=== PATIENT | female | born 1990 | race Caucasian/White ===

== ENCOUNTER → 2018-08-04 | Outpatient (CLI) | payer OTHER ==
--- NOTE | 2018-08-04 17:47 | Diagnostic Imaging Report ---
INDICATION: Undergoing anatomical assessment. TECHNIQUE: Multiple real-time grayscale images were obtained over the gravid uterus. COMPARISON: None. FINDINGS: Single viable intrauterine , currently in transverse orientation. Normal amount of amniotic fluid. The placenta is anterior in position and low lying. There is presence of at least a marginal placenta previa at this time. There does appear to be presence of a choroid plexus cyst at the right ventricle at 8 mm in size. There does appear to be mild dilatation of the renal pelves. Maternal adnexa not imaged. Cervical length appearing to be greater than 6 cm. Biometrical measurements are as follows: Biparietal 4.96 cm, age 21 weeks 1 days. Head circumference 18.50 cm, age 20 weeks 6 days. Abdominal circumference 17.73 cm, age 22 weeks 5 days. Femur length 3.20 cm, age 20 weeks 0 days. Sonographic estimate age: 21 weeks 2 days. Sonographic estimated date of delivery: 12/13/18. Estimated Weight: 418 gm (+/- 61 gm). LMP percentile: 90%. heart rate: 155 beats per minute. number: 1 of 1. IMPRESSION: 1. Single viable intrauterine , currently in transverse orientation. Sonographic estimated age 21 weeks 2 days for an estimated date of delivery December 13, 2018. 2. There is presence of asymmetric nearly 8 mm right-sided choroid plexus cyst of the lateral ventricle. 3. There is presence of at least marginal placenta previa. Followup imaging evaluation recommended. 4. There is mild dilatation of the renal pelves. Dictated by: Dictated on workstation # [id number]
== END ==
LOC: RAD 12:41
PROVIDERS: ATTEND Obstetrics & Gynecology
DX: O44.22 Partial placenta previa NOS or without hemorrhage, second trimester (principal); O36.8920 Maternal care for other specified fetal problems, second trimester, not applicable or unspecified; Z3A.21 21 weeks gestation of pregnancy
CPT/HCPCS: 76805

== ENCOUNTER 2018-12-20 20:16 | Inpatient (IN) | payer OTHER ==
[~2018-12-20] VITALS: Ht 157.5 cm; Wt 66.3 kg
--- NOTE | 2018-12-20 20:20 | NUR ---
CHUY BENEDICT presented to unit via ambulation from ED, accompanied by SO , with c/o LABOR. CHUY BENEDICT weighed, gowned, voided, and to bed. EFHM and TOCO applied, VS taken. CHUY BENEDICT oriented to bed controls, call light, TV, heat, and A/C controls.
[2018-12-20] MEDS ORDERED: FERR500P12 MC (20:32)
[2018-12-20] MEDS ORDERED: PREN1TAB79 PO (20:32)
--- NOTE | 2018-12-20 20:32 | NUR ---
Dr Wilder called and report given, pt to change to inpt status.
[2018-12-20] MEDS ORDERED: D5 LR IV SOLUTION 1,000 ML IV ONE (20:39)
[2018-12-20] MEDS ORDERED: LIDOCAINE/EPI 2% 1:200,00 (XYLOCAINE) 10 ML VIAL INJ ONE (20:45)
[2018-12-20 21:00] VITALS: BP 119/75
[2018-12-20] MEDS: D5 LR IV SOLUTION 1,000 ML IV SCH ×2 (21:00→23:19)
[2018-12-20 21:10] LABS: BASOPHILS % (AUTO) 0 % (0-10); EOSINOPHILS # (AUTO) 0.3 10^3/uL (0.0-0.3); EOSINOPHILS % (AUTO) 3 % (0-10); HEMATOCRIT 36 % (35-52); HEMOGLOBIN 12.5 G/DL (11.5-16.0); LYMPHOCYTES # (AUTO) 1.9 X 10^3 (1.0-4.0); LYMPHOCYTES % (AUTO) 16 % (12-44); MEAN CORPUSCULAR HEMOGLOBIN 33 PG (25-34); MEAN CORPUSCULAR HGB CONC 35 G/DL (32-36); MEAN CORPUSCULAR VOLUME 96 FL (80-99); MONOCYTES # (AUTO) 0.8 X 10^3 (0.0-1.0); MONOCYTES % (AUTO) 6 % (0-12); NEUTROPHILS # (AUTO) 8.8 X 10^3 (1.8-7.8); NEUTROPHILS % (AUTO) 74 % (42-75); PLATELET COUNT 149 10^3/uL (130-400); RED CELL DISTRIBUTION WIDTH 13.7 % (10.0-14.5); WHITE BLOOD COUNT 11.8 10^3/uL (4.3-11.0)
--- NOTE | 2018-12-20 21:34 | History & Physical-OB ---
OB - Chief Complaint & HPI Date/Time Date of Admission: Date of Admission: Dec 20, 2018 at 20:32 Date seen by a Provider: Dec 20, 2018 Time Seen by a Provider: 08:00 Chief Complaint/History OB-Reason for Admission/Chief: Onset of Labor Hx : 1 Hx Para: 0 Expected Date of Delivery: Dec 19, 2018 Gestational Age in Weeks: 40 Gestational Age in Days: 1 Admission Nurse Assessment Rev: Yes History of Labs A pos Antibody neg RI RPR NR HBsAg NR HIV NR GC neg GBS neg Allergies and Home Medications Allergies Coded Allergies: No Known Drug Allergies (Unverified , 12/20/18) Patient Home Medication List Home Medication List Reviewed: Yes OB - History Hx of Present Care: Yes Ultrasounds: Normal mid trimester US Obstetrical Complications: None Medical Complications: None Patient Past Medical History na OB - Admission Exam Physical Exam HEENT: NCAT Heart: Rhythm Normal Lungs: Clear Abdomen: Gravid Extremities: Normal Reflexes: Normal Cervical Dilatation: 4cm Effacement: 75% Station: -1 Membranes: Ruptured Amniotic Fluid: Clear Heart Rate: 130's Accelerations: Accelerations Present Decelerations: No Decelerations Short Term Variability: Present Senior Living Variability: Average (6-25) Contractions on Admission: 6-10 Minutes Apart Intensity: Mild Labs Laboratory Tests Test 12/20/18 21:00 Range/Units White Blood Count 11.8 H 4.3-11.0 10^3/uL Red Blood Count 3.74 L 4.35-5.85 10^6/uL Hemoglobin 12.5 11.5-16.0 G/DL Hematocrit 36 35-52 % Mean Corpuscular Volume 96 80-99 FL Mean Corpuscular Hemoglobin 33 25-34 PG Mean Corpuscular Hemoglobin Concent 35 32-36 G/DL Red Cell Distribution Width 13.7 10.0-14.5 % Platelet Count 149 130-400 10^3/uL Mean Platelet Volume 12.0 H 7.4-10.4 FL Neutrophils (%) (Auto) 74 42-75 % Lymphocytes (%) (Auto) 16 12-44 % Monocytes (%) (Auto) 6 0-12 % Eosinophils (%) (Auto) 3 0-10 % Basophils (%) (Auto) 0 0-10 % Neutrophils # (Auto) 8.8 H 1.8-7.8 X 10^3 Lymphocytes # (Auto) 1.9 1.0-4.0 X 10^3 Monocytes # (Auto) 0.8 0.0-1.0 X 10^3 Eosinophils # (Auto) 0.3 0.0-0.3 10^3/uL Basophils # (Auto) 0.0 0.0-0.1 10^3/uL OB - Assessment/Plan/Diagnosis Assessment Assessment: active labor Admission Dx 28 yo @ 40.1 SROM Active labor GBS neg Post dates Admission Status: Inpatient Order (span 2 midnights) Reason for Inpatient Admission: Active labor at term Plan Plan: Expectant Management RAFFAELE PERERA DO Dec 20, 2018 21:34
[2018-12-20 22:00] VITALS: BP 124/70
[2018-12-20] MEDS ORDERED: CATHETER FLUSH 10 ML SYR IV SCH (22:00)
[2018-12-20] MEDS ORDERED: TERBUTALINE INJ 1 MG/ML (BRETHINE) AMP ONE (22:32)
[2018-12-20 23:00] VITALS: BP 124/66
[2018-12-20] MEDS ORDERED: OXYTOCIN/NORMAL SALINE 500 ML IV SCH (23:58)
[2018-12-21] VITALS (91 sets, daily range): BP systolic 90–148; BP diastolic 50–86
[2018-12-21] MEDS ORDERED: SUFENTA 0.6MCG/ML BUPIVA 0.125 100 ML ONE (03:40)
[2018-12-21] MEDS: EPIDURAL (SUFENTA 0.6MCG/ML BUPIVA 0.125%) 100 ML BAG EPI SCH ×2 (04:46→13:11)
[2018-12-21] MEDS ORDERED: LACTATED RINGERS 1,000 ML IV SCH (04:56)
[2018-12-21] MEDS ORDERED: diphenhydrAMINE 50 MG/ML INJ (BENADRYL) IV PRN (05:00)
[2018-12-21] MEDS ORDERED: ONDANSETRON 4 MG/2 ML (SDV) Z0FRAN IV PRN (05:00)
[2018-12-21] MEDS ORDERED: NALOXONE 0.4 MG/ML 1 ML (NARCAN) VIAL IV PRN ×3 (05:00→06:15)
[2018-12-21] MEDS ORDERED: METOCLOPRAMIDE INJ 10 MG/2 ML (REGLAN) IV PRN (05:00)
[2018-12-21] MEDS ORDERED: LACTATED RINGERS 1,000 ML IV ONE (06:12)
[2018-12-21] MEDS ORDERED: EPIDURAL (SUFENTA 0.6MCG/ML BUPIVA 0.125%) 100 ML BAG EPI SCH (06:15)
[2018-12-21] MEDS ORDERED: CATHETER FLUSH 10 ML SYR IV PRN ×2 (06:15→21:30)
--- NOTE | 2018-12-21 07:15 | NUR ---
THIS RN INTRODUCES SELF TO PT AND SO AT THIS TIME. PLAN OF CARE REVIEWED. QUESTIONS ANSWERED. PT DENIES NEEDS AT THIS TIME. CALL LIGHT WITHIN REACH.
[2018-12-21] MEDS: D5 LR IV SOLUTION 1,000 ML IV SCH ×3 (07:30→23:00)
--- NOTE | 2018-12-21 08:10 | NUR ---
DR PERERA ON LD UNIT AT THIS TIME. THIS RN UPDATES ON PT REPORT, REVIEWS FHT STRIP AND UC PATTERN. EPIDURAL PLACED AT APPROX 0445. PITOCIN RATE IS AT 12 MILLIUNITS/HR SINCE 729. LAST SVE WAS AT 0340 BY NORMA JI . CLEAR FLUID. NO FEVER. VSS. PT RESTING. DR DISCUSSES PLAN OF PT CARE WITH THIS RN. DR PERERA AND THIS RN GO TO BEDSIDE TO VISIT WITH PT AND SO. SVE BY DR PERERA. NO CERVICAL CHANGE HAS BEEN MADE. DR PERERA ORDERS TO TURN OFF PITOCIN RATE AT THIS TIME. RESTART AT 14 MILLIUNITS/HR IN 45 MIN TO LET PITOCIN RECEPTORS RESET. THEN WILL CONTINUE TO INCREASE PITOCIN RATE PER PROTOCOL. DR PERERA DOES NOT WANT SVE TODAY UNLESS S/S DEEM NECESSARY.
--- NOTE | 2018-12-21 10:22 | Anesthesia-Regional Post-Op ---
Regional Patient Condition Mental Status: Alert, Oriented x3 Circulation: Same as Pre-Op Headache: Absent Sensation: Full Recovery Motor Block: Absent Post Op Complications Complications None Follow Up Care/Instructions Patient Instructions None needed. Anesthesia/Patient Condition Patient is doing well, no complaints, stable vital signs, no apparent adverse anesthesia problems. No complications reported per nursing. OLIVE KOROMA CRNA Dec 21, 2018 10:22
--- NOTE | 2018-12-21 15:30 | NUR ---
THIS RN CALLS DR WITH UPDATED PT REPORT. PITOCIN RATE AT 20 MILLIUNITS/HR. UC PATTERN IRREGULAR. WILL HAVE 4-5 UC IN A ROW 1.5 MIN APART THEN SPACE OUT WITH NO UC FOR 5-7 MINUTES. FHT REACTIVE, MODERATE VARIABILITY WITH ACCELS. DR PERERA WANTS TO TURN PITOCIN OFF FOR 1 HOUR THEN RESTART AT 10 MILLIUNITS/HR. DR PERERA STATES EH SHOULD BE DONE WITH CLINIC AND UP TO SEE PT BY THAT TIME.
--- NOTE | 2018-12-21 20:05 | NUR ---
Dr. Wilder updated on pt status. orders pt to be rechecked at 2030, and give him a call with the update. If pt. has still made no change, states he will call a section.
--- NOTE | 2018-12-21 20:42 | NUR ---
Dr. Wilder called with updated SVE and temp. States that he will be up shortly to talk to pt about a section. OR crew given heads up.
[2018-12-21] MEDS ORDERED: CITRIC ACID/SOB CIT (BICITRA) 30 ML UDC ONE (20:49)
[2018-12-21] MEDS ORDERED: FAMOTIDINE 20MG/2ML IV (PEPCID) ONE (20:50)
[2018-12-21] MEDS ORDERED: ceFAZolin INJECTION 1,000 MG ONE (20:50)
[2018-12-21] MEDS ORDERED: WATER (STERILE) FOR INJECTION 10 ML ONE (20:58)
[2018-12-21] MEDS ORDERED: WATER (STERILE) FOR INJECTION 0 ML ONE (20:58)
--- NOTE | 2018-12-21 21:00 | NUR ---
Dr. Wilder at pt bedside explaining procedure. Pt. agrees to .
[2018-12-21] MEDS ORDERED: OXYTOCIN/NORMAL SALINE 500 ML IV SCH (21:21)
[2018-12-21] MEDS ORDERED: LIDOCAINE PF 2% 5 ML (XYLOCAINE) VIAL ONE (21:23)
[2018-12-21] MEDS ORDERED: BUPIVACAINE 0.5% 30 ML (SENSORCAINE) VIAL ONE ×2 (21:24)
[2018-12-21] MEDS ORDERED: fentaNYL INJECTION 100 MCG/2 ML AMP ONE ×2 (21:24→22:03)
--- NOTE | 2018-12-21 21:28 | Discharge Inst-Women's Service ---
Discharge Inst-Women's Serv Depart Medication/Instructions New, Converted or Re-Newed RX: RX on Chart Final Diagnosis POD 2 PLTCS Consults/Follow Up Additional Follow Up: Yes Orders/Referrals Dr. Wilder in 7-10 days and in 6 weeks Activity Activity: Activity as Tolerated Driving Instructions: No Driving for 1 Week NO SMOKING: NO SMOKING Nothing Inside Vagina: No Douching, No [place], No Tampons Diet Discharge Diet: No Restrictions Symptoms to Report to : Bleeding Excessive, Pain Increased, Fever Over 101 Degrees F, Vaginal Bleeding Increase, Questions/Concerns For Any Problems or Questions: Contact Your Physician Skin/Wound Care Infection Signs and Symptoms: Increased Redness, Foul Odor of Wound, Increased Drainage, Skin Itchy or Has a Rash, Increased Swelling, Temperature Above 101 F Operative Area Clean and Dry: Keep Incision Clean/Dry Stitches/[place]/Dermabond: Dermabond, Care of Stitches Bathing Instructions: RAFFAELE So DO Dec 21, 2018 9:28 pm
[2018-12-21] MEDS ORDERED: TETANUS,DIPTH,PERTUSS P/F (BOOSTRIX) 0.5 ML VIAL IM SCH (21:30)
[2018-12-21] MEDS ORDERED: METOCLOPRAMIDE INJ 10 MG/2 ML (REGLAN) IV ONE (21:30)
[2018-12-21] MEDS ORDERED: FAMOTIDINE 20MG/2ML IV (PEPCID) IV ONE (21:30)
[2018-12-21] MEDS ORDERED: IBUP-844 PO (21:30)
[2018-12-21] MEDS ORDERED: ACHD5005 PO (21:30)
[2018-12-21] MEDS ORDERED: MEASLES,MUMPS,RUBELLA 1 EA INJ SC SCH (21:30)
[2018-12-21] MEDS ORDERED: DOCU100C37 PO (21:30)
[2018-12-21] MEDS ORDERED: ONDANSETRON 4 MG/2 ML (SDV) Z0FRAN IVP PRN ×2 (21:30→22:45)
[2018-12-21] MEDS ORDERED: CITRIC ACID/SOB CIT (BICITRA) 30 ML UDC PO ONE (21:30)
--- NOTE | 2018-12-21 21:34 | Progress Note-Standard ---
Standard Progress Note Progress Notes/Assess & Plan Date Seen by a Provider: Dec 21, 2018 Time Seen by a Provider: 21:00 Progress/Assessment & Plan Patient was admitted yesterday with SROM at 1800 40 weeks gestation. Pitocin augmentation was used throughout the night and the day today, and epidural was received for analgesia with good control. Max dose of pitocin was 20 mu/min, and still a dysfunctional contraction pattern was noted, multiple attempts were made to stop and restart at half dosing without any decent in the vertex nor, progression in cervical change, she presented 4 cm and 60-70 percent effaced and made no ticket dispenser changer >24 hrs. I discussed with the patient my concern with continuing with no change and risk of chorioamnionitis, especially now with prolonged rupture. I discussed proceed with , risk reviewed in detail as well as risk with anesthesia. All questions were answered and consent was obtained. Patient then taken to the OR for prep to proceed with delivery. RAFFAELE PERERA DO Dec 21, 2018 9:34 pm
[2018-12-21] MEDS ORDERED: ceFAZolin INJECTION 1,000 MG in WATER (STERILE) FOR INJECTION 10 ML IV ONE (21:45)
[2018-12-21] MEDS ORDERED: METHYLERGONOVINE 0.2 MG/ML (METHERGINE) AMP IM ONE (21:52)
[2018-12-21] MEDS ORDERED: CATHETER FLUSH 10 ML SYR IV SCH (22:00)
[2018-12-21] MEDS ORDERED: MIDAZOLAM 2 MG/2 ML (VERSED) VIAL ONE (22:04)
[2018-12-21] MEDS ORDERED: proPOfol 200 MG/20 ML (DIPRIVAN) VIAL IV ONE (22:20)
[2018-12-21] MEDS: KETOROLAC 30 MG/ML VIAL IV SCH (23:05)
[2018-12-22] VITALS (7 sets, daily range): BP systolic 97–127; BP diastolic 49–68
[2018-12-22] MEDS: HYDROcodone/APAP 5 MG/325 MG (LORTAB) TAB PO PRN ×6 (00:15→22:13)
--- NOTE | 2018-12-22 03:00 | NUR ---
Nurse at pt bedside. Pt. sleeping soundly at this time. IV saline locked at this time.
--- NOTE | 2018-12-22 03:16 | OPERATIVE REPORT ---
DATE OF SERVICE: PREOPERATIVE DIAGNOSES: 1. A 28-year-old G1, P0 at 40 weeks and 2 days gestation. 2. Cephalopelvic disproportion. 3. Postdates. 4. Prolonged rupture of membranes. POSTOPERATIVE DIAGNOSES: 1. A 28-year-old G1, P0 at 40 weeks and 2 days gestation. 2. Cephalopelvic disproportion. 3. Postdates. 4. Prolonged rupture of membranes. PROCEDURE: Primary low transverse section. SURGEON: Randall Wilder DO ANESTHESIA: Epidural, which was bolused. ESTIMATED BLOOD LOSS: 550 mL. URINE OUTPUT: 100 mL clear at the end of the procedure. FLUIDS: 700 mL lactated Ringer's solution. FINDINGS: A live male infant weighing 9 pounds 2 ounces, Apgars of 8 and 9. Grossly normal appearing uterus, bilateral fallopian tubes and ovaries. INDICATIONS FOR PROCEDURE: Please see my preoperative note for complete details pertaining to the patient's preoperative course in labor progression. OPERATIVE REPORT IN DETAIL: Once in the operating room, epidural analgesia was bolused and found to be adequate. She was placed in supine position with leftward tilt, prepped and draped in normal sterile fashion. Anesthesia was tested and a timeout was performed. After anesthesia was found to be adequate, I then proceeded to make a Pfannenstiel skin incision with a knife and carried down to the underlying fascia using Bovie cautery. Fascial incision extended laterally using Bovie cautery. Superior aspect of the fascial incision was then grasped with Cleopatra clamps, tented upward and dissected off the underlying rectus muscles. The inferior aspect of the fascial incision was then grasped with Cleopatra clamps, tented up and dissected off the underlying rectus muscles. Rectus muscles were then dissected down the midline using Shelton scissors, which exposed the peritoneum, which I entered bluntly and extended using blunt traction. Ty ring retractor was placed in the peritoneal incision, which offered excellent lateral sidewall retraction. I then proceeded with making a low transverse incision to the vesicouterine peritoneum and bluntly dissected off the lower uterine segment. I proceeded with myotomy until membranes were visualized, at which point I extended the uterine incision laterally and superiorly using bandage scissors. The infant was found in vertex presentation transverse right. With gentle fundal pressure, the infant's head is elevated up to the incision and delivered through the incision. The nares and the oropharynx were then bulb suctioned. The anterior and posterior shoulders were delivered and the infant was then brought on to the operative field where the cord was doubly clamped and the infant was handed off to the awaiting nurse in attendance. Cord blood was collected. A 3-vessel cord with intact placenta was delivered spontaneously thereafter. IV Pitocin was initiated to facilitate uterine contraction. Uterine fundus was confirmed by bimanual massage. The uterus was then exteriorized and cleared of all endometrial clots and debris. I then proceeded with closing the uterine incision using 0 Vicryl suture in a running locked fashion. A second layer of imbricating 0 Monocryl was placed. Excellent hemostasis was noted after doing this. I then evaluated the uterus itself. It appeared to be slightly boggy, so I do have anesthesia give 0.2 mg of Methergine IM and the bogginess then resolved and there is good uterine firmness. I then placed the uterus back within the pelvis and copiously irrigated the pelvis using normal saline. There was no active bleeding noted from any of my dissection planes. I placed Interceed antiadhesive over my low transverse incision and proceeded with closing my peritoneum using 3-0 Vicryl suture in a running fashion. The rectus muscle reapproximated using 3-0 Vicryl suture in interrupted fashion. The fascia was reapproximated using 0 Vicryl suture in running fashion. Subcutaneous tissue was reapproximated using 3-0 plain in interrupted fashion and the skin reapproximated using 4-0 Monocryl in a running subcuticular. Dermabond was applied to the incision and a sterile dressing with adhesive white tape. The patient tolerated the procedure well and sent to recovery area in stable condition. Lap and sponge counts were correct at the end of the procedure. Instrument count was correct as well. One gram of Ancef given preoperatively for infection prophylaxis. Job ID: [id number] DocumentID: [id number] Dictated Date: 12/21/2018 22:36:59 [employer] Sales Representative Date: 12/22/2018 03:15:18 Dictated By: DO NUPUR GRACIA
[2018-12-22] MEDS: KETOROLAC 30 MG/ML VIAL IV SCH (05:15)
[2018-12-22 06:41] LABS: BASOPHILS % (AUTO) 0 % (0-10); EOSINOPHILS # (AUTO) 0.1 10^3/uL (0.0-0.3); EOSINOPHILS % (AUTO) 1 % (0-10); HEMATOCRIT 33 % (35-52); HEMOGLOBIN 11.3 G/DL (11.5-16.0); LYMPHOCYTES # (AUTO) 1.2 X 10^3 (1.0-4.0); LYMPHOCYTES % (AUTO) 8 % (12-44); MEAN CORPUSCULAR HEMOGLOBIN 33 PG (25-34); MEAN CORPUSCULAR HGB CONC 34 G/DL (32-36); MEAN CORPUSCULAR VOLUME 97 FL (80-99); MEAN PLATELET VOLUME 11.4 FL (7.4-10.4); MONOCYTES # (AUTO) 0.7 X 10^3 (0.0-1.0); MONOCYTES % (AUTO) 5 % (0-12); NEUTROPHILS # (AUTO) 11.9 X 10^3 (1.8-7.8); NEUTROPHILS % (AUTO) 86 % (42-75); PLATELET COUNT 111 10^3/uL (130-400); RED CELL DISTRIBUTION WIDTH 13.6 % (10.0-14.5); WHITE BLOOD COUNT 13.8 10^3/uL (4.3-11.0)
--- NOTE | 2018-12-22 08:18 | Postpartum Progress Note ---
Note Note Day # 1 Subjective: Patient is without complaints. Ambulating, voiding. Tolerating a regular diet without nausea or vomiting. Normal lochia. Pain is well controlled with oral pain medications. Objective: Vital Sign - Last 24 Hours 12/21/18 12/21/18 12/21/18 12/21/18 08:30 08:45 09:00 09:15 Temp 98.2 Pulse 62 61 66 68 Resp 16 B/P (MAP) 110/67 (81) 114/73 (87) 112/69 (83) 99/58 (72) O2 Delivery Room Air Room Air Room Air Room Air 12/21/18 12/21/18 12/21/18 12/21/18 09:30 09:45 10:00 10:15 Pulse 68 60 58 57 Resp 16 B/P (MAP) 111/67 (82) 103/59 (74) 107/66 (80) 103/62 (76) O2 Delivery Room Air Room Air Room Air Room Air 12/21/18 12/21/18 12/21/18 12/21/18 10:30 10:45 11:00 11:15 Temp 98.6 Pulse 66 69 60 65 Resp 16 B/P (MAP) 124/66 (85) 115/67 (83) 114/69 (84) 108/67 (81) O2 Delivery Room Air Room Air Room Air Room Air 12/21/18 12/21/18 12/21/18 12/21/18 11:30 11:45 12:00 12:15 Temp 99.0 Pulse 60 59 58 66 Resp 16 B/P (MAP) 111/68 (82) 113/69 (84) 113/70 (84) 105/68 (80) O2 Delivery Room Air Room Air Room Air Room Air 12/21/18 12/21/18 12/21/18 12/21/18 12:30 12:45 13:00 13:15 Pulse 73 62 59 61 B/P (MAP) 122/74 (90) 119/67 (84) 125/67 (86) 113/57 (75) O2 Delivery Room Air Room Air Room Air Room Air 12/21/18 12/21/18 12/21/18 12/21/18 13:30 13:45 14:00 14:15 Temp 98.7 Pulse 64 69 71 Resp 16 B/P (MAP) 105/64 (78) 118/72 (87) 120/76 (91) 123/72 (89) O2 Delivery Room Air Room Air Room Air Room Air 12/21/18 12/21/18 12/21/18 12/21/18 14:30 14:45 15:00 15:15 Pulse 63 75 66 81 Resp 16 B/P (MAP) 129/73 (91) 132/77 (95) 125/68 (87) 118/72 (87) O2 Delivery Room Air Room Air Room Air Room Air 12/21/18 12/21/18 12/21/18 12/21/18 15:30 15:45 16:00 16:15 Temp 98.6 Pulse 63 69 73 66 Resp 16 B/P (MAP) 119/72 (88) 109/71 (84) 117/76 (90) 113/56 (75) O2 Delivery Room Air Room Air Room Air Room Air 12/21/18 12/21/18 12/21/18 12/21/18 16:30 16:45 17:00 17:15 Temp 99.1 Pulse 62 81 89 85 Resp 16 B/P (MAP) 114/72 (86) 99/66 (77) 148/65 (92) 129/57 (81) O2 Delivery Room Air Room Air Room Air Room Air 12/21/18 12/21/18 12/21/18 12/21/18 17:30 17:45 18:00 18:15 Pulse 82 64 73 68 Resp 16 B/P (MAP) 104/54 (71) 103/53 (70) 96/54 (68) 90/55 (67) O2 Delivery Room Air Room Air Room Air Room Air 12/21/18 12/21/18 12/21/18 12/21/18 18:30 18:45 19:00 19:15 Temp 99.1 99.5 Pulse 80 80 88 66 Resp 16 18 B/P (MAP) 113/63 (80) 113/63 (80) 106/58 (74) 111/65 (80) O2 Delivery Room Air Room Air Room Air Room Air 12/21/18 12/21/18 12/21/18 12/21/18 19:30 19:45 20:00 20:15 Temp 98.2 Pulse 69 71 60 78 Resp 18 B/P (MAP) 108/82 (91) 121/86 (98) 119/73 (88) 116/61 (79) O2 Delivery Room Air Room Air Room Air Room Air 12/21/18 12/21/18 12/21/18 12/21/18 20:30 20:45 21:00 21:15 Temp 98.5 Pulse 83 85 71 93 B/P (MAP) 122/80 (94) 123/69 (87) 131/77 (95) 130/79 (96) O2 Delivery Room Air Room Air Room Air Room Air 12/21/18 12/21/18 12/21/18 12/21/18 21:30 22:33 22:33 22:40 Pulse 68 Resp 19 20 B/P (MAP) 123/74 (90) Pulse Ox 97 97 O2 Delivery Room Air Room Air Room Air Room Air 12/21/18 12/21/18 12/21/18 12/21/18 22:45 22:50 23:00 23:00 Resp 18 20 Pulse Ox 98 99 O2 Delivery Room Air Room Air Room Air Room Air 12/21/18 12/21/18 12/21/18 12/21/18 23:10 23:13 23:15 23:20 Resp 18 18 Pulse Ox 97 98 O2 Delivery Room Air Room Air Room Air Room Air 12/21/18 12/21/18 12/21/18 12/22/18 23:25 23:25 23:30 00:15 Temp 99.0 98.9 Pulse 65 63 Resp 18 18 18 B/P (MAP) 136/66 (89) 127/65 (85) Pulse Ox 98 O2 Delivery Room Air Room Air Room Air Room Air 12/22/18 04:10 Temp 97.9 Pulse 68 Resp 18 B/P (MAP) 104/67 (79) Pulse Ox 97 O2 Delivery Room Air Intake and Output 12/21/18 12/21/18 12/22/18 15:00 23:00 07:00 Intake Total 1600 ml 1510 ml 1800 ml Output Total 900 ml 625 ml 950 ml Balance 700 ml 885 ml 850 ml Physical Exam: General - Alert and oriented, no apparent distress Abdomen - Soft, appropriately tender to palpation, non-distended, fundus firm at umbilicus Extremities - no edema, negative Jet's bilaterally Incision- c/d/i Assessment: POD 1 PLTCS Plan: Routine care. Encourage breast feeding. Encourage ambulation. Ferrous sulfate supplementation. Plan for discharge tomorrow Vitals - Labs Vital Signs - I&O Vital Signs Date Time Temp Pulse Resp B/P (MAP) Pulse Ox O2 Delivery O2 Flow Rate FiO2 12/22/18 04:10 97.9 68 18 104/67 (79) 97 Room Air 12/22/18 00:15 98.9 63 18 127/65 (85) Room Air 12/21/18 23:30 99.0 65 18 136/66 (89) Room Air 12/21/18 23:25 18 98 Room Air 12/21/18 23:25 Room Air 12/21/18 23:20 18 98 Room Air 12/21/18 23:15 Room Air 12/21/18 23:13 Room Air 12/21/18 23:10 18 97 Room Air 12/21/18 23:00 20 99 Room Air 12/21/18 23:00 Room Air 12/21/18 22:50 18 98 Room Air 12/21/18 22:45 Room Air 12/21/18 22:40 20 97 Room Air 12/21/18 22:33 Room Air 12/21/18 22:33 19 97 Room Air 12/21/18 21:30 68 123/74 (90) Room Air 12/21/18 21:15 93 130/79 (96) Room Air 12/21/18 21:00 71 131/77 (95) Room Air 12/21/18 20:45 85 123/69 (87) Room Air 12/21/18 20:30 98.5 83 122/80 (94) Room Air 12/21/18 20:15 78 116/61 (79) Room Air 12/21/18 20:00 60 119/73 (88) Room Air 12/21/18 19:45 98.2 71 18 121/86 (98) Room Air 12/21/18 19:30 69 108/82 (91) Room Air 12/21/18 19:15 99.5 66 18 111/65 (80) Room Air 12/21/18 19:00 99.1 88 106/58 (74) Room Air 12/21/18 18:45 80 16 113/63 (80) Room Air 12/21/18 18:30 80 113/63 (80) Room Air 12/21/18 18:15 68 90/55 (67) Room Air 12/21/18 18:00 73 96/54 (68) Room Air 12/21/18 17:45 64 16 103/53 (70) Room Air 12/21/18 17:30 82 104/54 (71) Room Air 12/21/18 17:15 85 129/57 (81) Room Air 12/21/18 17:00 89 148/65 (92) Room Air 12/21/18 16:45 81 99/66 (77) Room Air 12/21/18 16:30 99.1 62 16 114/72 (86) Room Air 12/21/18 16:15 66 113/56 (75) Room Air 12/21/18 16:00 73 117/76 (90) Room Air 12/21/18 15:45 69 109/71 (84) Room Air 12/21/18 15:30 98.6 63 16 119/72 (88) Room Air 12/21/18 15:15 81 118/72 (87) Room Air 12/21/18 15:00 66 125/68 (87) Room Air 12/21/18 14:45 75 132/77 (95) Room Air 12/21/18 14:30 63 16 129/73 (91) Room Air 12/21/18 14:15 123/72 (89) Room Air 12/21/18 14:00 71 120/76 (91) Room Air 12/21/18 13:45 69 118/72 (87) Room Air 12/21/18 13:30 98.7 64 16 105/64 (78) Room Air 12/21/18 13:15 61 113/57 (75) Room Air 12/21/18 13:00 59 125/67 (86) Room Air 12/21/18 12:45 62 119/67 (84) Room Air 12/21/18 12:30 73 122/74 (90) Room Air 12/21/18 12:15 66 105/68 (80) Room Air 12/21/18 12:00 99.0 58 16 113/70 (84) Room Air 12/21/18 11:45 59 113/69 (84) Room Air 12/21/18 11:30 60 111/68 (82) Room Air 12/21/18 11:15 65 108/67 (81) Room Air 12/21/18 11:00 98.6 60 16 114/69 (84) Room Air 12/21/18 10:45 69 115/67 (83) Room Air 12/21/18 10:30 66 124/66 (85) Room Air 12/21/18 10:15 57 103/62 (76) Room Air 12/21/18 10:00 58 16 107/66 (80) Room Air 12/21/18 09:45 60 103/59 (74) Room Air 12/21/18 09:30 68 111/67 (82) Room Air 12/21/18 09:15 68 99/58 (72) Room Air 12/21/18 09:00 66 112/69 (83) Room Air 12/21/18 08:45 98.2 61 16 114/73 (87) Room Air 12/21/18 08:30 62 110/67 (81) Room Air I & O 12/22/18 07:00 Intake Total 4910 ml Output Total 2475 ml Balance 2435 ml Labs Laboratory Tests 12/22/18 06:30: White Blood Count 13.8H, Red Blood Count 3.38L, Hemoglobin 11.3L, Hematocrit 33L , Mean Corpuscular Volume 97, Mean Corpuscular Hemoglobin 33, Mean Corpuscular Hemoglobin Concent 34, Red Cell Distribution Width 13.6, Platelet Count 111L, Mean Platelet Volume 11.4H, Neutrophils (%) (Auto) 86H, Lymphocytes (%) (Auto) 8L, Monocytes (%) (Auto) 5, Eosinophils (%) (Auto) 1, Basophils (%) (Auto) 0, Neutrophils # (Auto) 11.9H, Lymphocytes # (Auto) 1.2, Monocytes # (Auto) 0.7, Eosinophils # (Auto) 0.1, Basophils # (Auto) 0.0 RAFFAELE PERERA DO Dec 22, 2018 08:18
[2018-12-22] MEDS: DOCUSATE SODIUM 100 MG (COLACE) CAP PO SCH ×3 (09:34→20:37)
[2018-12-22] MEDS: IBUPROFEN 600 MG (MOTRIN) TAB PO SCH ×4 (11:20→23:59)
--- NOTE | 2018-12-22 15:05 | NUR ---
Up and about in room and hallway. Rates pain 3-4. Voiding well, lochia small amt. Good bonding with .
--- NOTE | 2018-12-22 15:15 | NUR ---
REPORT RECEIVED FROM KAUR BOGGS RN.
--- NOTE | 2018-12-22 16:30 | NUR ---
VISITORS AT BEDSIDE. CONTINUES TO CARE FOR IN ROOM.
--- NOTE | 2018-12-22 17:33 | NUR ---
LORTAB 5/325 1 TAB FOR C/O ABD PAIN.
--- NOTE | 2018-12-22 17:34 | NUR ---
PT STATES SHE HAS HAD HER TDAP.
--- NOTE | 2018-12-22 18:45 | NUR ---
OUT AMBULATING IN THE [facility]. MOVING BETTER. OFFERED AN ABDOMINAL BINDER IF DESIRES.
--- NOTE | 2018-12-22 20:15 | NUR ---
PM assessment completed. VSS, no S/S of distress noted. C/S incision clean, dry, intact, and open to air. Pt. denies any questions or concerns at this time. Will continue to monitor. Call light within reach.
[2018-12-23] MEDS: IBUPROFEN 600 MG (MOTRIN) TAB PO SCH ×2 (06:15→12:54)
[2018-12-23 06:37] VITALS: BP 94/51
[2018-12-23 07:55] VITALS: BP 107/56
--- NOTE | 2018-12-23 08:51 | NUR ---
report received from NORMA Goyal.
--- NOTE | 2018-12-23 09:45 | NUR ---
here. dismissal orders received.
--- NOTE | 2018-12-23 10:30 | NUR ---
dismissal instructions given, verbalizes understanding. reviewed follow up appointments and dismissal Rx's. signature page signed, placed on chart.
[2018-12-23 12:00] VITALS: BP 109/69
[2018-12-23] MEDS: DOCUSATE SODIUM 100 MG (COLACE) CAP PO SCH (12:53)
--- NOTE | 2018-12-23 14:20 | NUR ---
pt ambulated to private vehicle with staff, infant and s/o @ side. infant secured in rear facing car seat. pt stable with no sx's of distress noted.
== END 2018-12-23 14:20 | disposition home or self-care (01) | DRG 788 ==
LOC: WSo 20:16 → LDRP 20:19 → WSo 20:32 → WS 12-21 23:30
PROVIDERS: ADMIT Obstetrics & Gynecology; ATTEND Obstetrics & Gynecology
PROC: 10D00Z1 Extraction of Products of Conception, Low, Open Approach (ICD-10-PCS; principal; 2018-12-21 21:45)
DX: O48.0 Post-term pregnancy (principal); O42.02 Full-term premature rupture of membranes, onset of labor within 24 hours of rupture; O65.4 Obstructed labor due to fetopelvic disproportion, unspecified; Z3A.40 40 weeks gestation of pregnancy; Z37.0 Single live birth
CPT/HCPCS: 36415; 85025; 86850; 86900; 86901; 88307; 94664; 99212